=== PATIENT | female | born 1960 | race Caucasian/White ===

== ENCOUNTER 2024-03-11 15:37 | Emergency (ER) | payer OTHER, SELFPAY ==
[2024-03-11 15:40] VITALS: BP 133/70
--- NOTE | 2024-03-11 16:33 | ED.GENMED ---
History of Present Illness
General
Chief Complaint: Eye Problems
Source: patient
Exam Limitations: none
Time Seen by Provider: 03/11/24 15:56
Nursing documentation reviewed up to this point in time: agreed with
History of Present Illness
History of Present Illness:
64-year-old female presenting to the emergency department today with concerns of swelling to the right eye worsening throughout the day today. Moderately painful mildly itchy no visual changes no trauma or additional concerns otherwise
Past History
Past History
ED Past Medical History: None
ED Past Surgical History: None
Social History
Tobacco: Non-smoker
Alcohol: None
Drug: None
Personal: Single
Living: with family
Review of Systems
Review of Systems
Allergies reviewed?: Yes
All Other Systems: ROS reviewed and negative except as documented in HPI and ROS
Phy Exam
Physical Exam
Physical Exam:
GENERAL: Alert , in no apparent distress
EYE: Swelling to the right upper eyelid with extension and some mild redness to the surrounding tissue. Maximal to the 11:00 portion of the eyelid. Mildly tender otherwise normal-appearing eye, normal pupil reaction and extraocular movements
pupils equal and reactive
NECK: Supple, no significant adenopathy.
ENT: o/p clr, mmm.
CARDIAC: Regular rate and rhythm .
LUNGS: Clear breath sounds bilaterally, no acute respiratory distress, no wheezes/rales/rhonchi
ABDOMEN: Soft, without focal tenderness, no r/g, no cvat
NEUROLOGICAL: Alert and oriented, no focal neuro deficits
SKIN: Warm and dry, skin intact.
MUSCULOSKELETAL: No edema, well perfused.
PSYCH: Normal and appropriate interaction.
Course
Orders/Labs/Results
Orders:
Orders
03/11/24 15:52
Fluorescein Sodium [Ful-Yasmine] 2 mg .ROUTE .STK-MED ONE
Tetracaine HCl [Tetracaine 0.5% Ophthalmic Solution] 1 drop .ROUTE .STK-MED ONE
03/11/24 16:29
Amoxicillin 875 mg/Clav 125 mg [Augmentin 875 mg/125 mg] 1 tablet PO NOW STA
Vital Signs
Initial and Last Documented VS:
Initial Vital Signs
Temp Pulse Resp BP Pulse Ox
97.4 F 55 16 133/70 98
03/11/24 15:40 03/11/24 15:40 03/11/24 15:40 03/11/24 15:40 03/11/24 15:40
Last Documented Vital Signs
Temp Pulse Resp BP Pulse Ox
97.4 F 55 16 133/70 98
03/11/24 15:40 03/11/24 15:40 03/11/24 15:40 03/11/24 15:40 03/11/24 15:40
MDM/Problems Addressed
MDM/Problems Addressed:
64-year-old female presenting to the emergency department today with concerns of right eyelid swelling worsening throughout the morning. No fevers no systemic symptoms. Swelling is mainly to the eyelid itself likely consistent with hordeolum or
blepharitis. She was advised for warm compresses and erythromycin ointment. No involvement of the eye itself with good vision normal extraocular movements and normal pupil reaction. No signs of foreign body with fluorescein exam. There was some
slight extending redness to the surrounding area raising some degree of concern for early preseptal cellulitis though blepharitis seems more likely. This was discussed with the patient who opted to start antibiotics orally as well. She was advised
for ophthalmology follow-up return precautions given.
*Critical Care Note
Total Time (30-74mins, 75-104mins- exclusive of procedures): Not Applicable
ED Attending Note
-
Portions of this chart may have been created with voice recognition software.� Occasional wrong word or��sound alike� substitutions may have occurred due to the inherent limitations of voice recognition software.
Discharge Plan
Departure
Patient Disposition: Home (Routine Discharge)
Date of Disposition: 03/11/24
Time of Disposition: 16:33
Patient with high blood pressure during this ER visit?: No
Condition: Good
Covid-19: Not Applicable
Discharge Problem:
Blepharitis
Instructions: Blepharitis
Prescriptions:
New
amoxicillin-pot clavulanate 875-125 mg tablet
1 tab PO BID 5 Days Qty: 10 0RF
erythromycin 5 mg/gram (0.5 %) ointment
1 applic ophthalmic (eye) BID Qty: 3.5 0RF
No Action
moxifloxacin [Vigamox] 0.5 % drops
1 drp OPHTHALMIC TID Qty: 1 0RF
Rx Instructions:
1 drop three times a day to the right eye
prednisone 10 mg Tablet
10 mg PO DIRECTED Qty: 21 0RF
Rx Instructions:
Take 6 tabs on day 1, 5 tabs on day 2, 4 tabs on day 3, 3 tabs on day 4, 2 tabs on day 5, 1 tab on day 6
pseudoephedrine HCl [Sudafed] 30 mg tablet
30 mg PO ONCE PRN (Reason: nasal congestion) Qty: 10 0RF
azithromycin [Zithromax] 250 mg tablet
250 mg PO DAILY Qty: 6 0RF
Rx Instructions:
take 2 tabs on day 1 and then 1 tab for remaining
Referrals:
Vasquez Cornelius MD [Active] - Follow up in 2-3 days
UNKNOWN - PT DOES,NOT KNOW [Family Provider] -
Activity Restrictions/Additional Instructions:
You came to the emergency department today with concerns of eyelid swelling. This is likely blepharitis or hordeolum. Please use the erythromycin to the affected area as well as warm compresses multiple times per day to the area. Please also take
the antibiotics to reduce risk of progression. Return to the emergency department any worsening, new or concerning symptoms. Otherwise please follow closely with an eye doctor.
Interventions
Interventions:
*Risk Screen - Suicide Last Done: 03/11/24 15:40
*General Assessment Last Done: 03/11/24 15:40
*Neglect/Abuse Screening Last Done: 03/11/24 15:40
ED- Fall Risk Assessment Last Done: 03/11/24 16:14
*ED COVID-19 Vaccine History Last Done: 03/11/24 16:13
Discharge Date and Time
Print Language: [place]
[2024-03-11] MEDS: AUGMENTIN 875 MG/125 MG 1 TABLET PO (16:36)
[2024-03-11 16:38] VITALS: BMI 19.2
== END 2024-03-11 16:47 | disposition home or self-care (01) ==
LOC: EMR 15:37
PROVIDERS: EMERGENCY PHYSICIAN Emergency Medicine
DX: H01.001 Unspecified blepharitis right upper eyelid (principal); Z88.8 Allergy status to other drugs, medicaments and biological substances
CPT/HCPCS: 99283

== ENCOUNTER 2025-06-15 17:42 | Emergency (ER) | payer OTHER, SELFPAY ==
[2025-06-15 17:52] VITALS: BP 158/88
[2025-06-15 18:15] LABS: Hematocrit 38.6 % (37.0-47.0); Hemoglobin 13.5 g/dL (12.0-16.0); Mean Corp Hgb Conc. 35.0 g/dL (33.0-37.0); Mean Corpuscular Volume 90.8 fL (81.0-99.0); Nucleated Red Blood Cells % 0 %; Platelet Count 240 10^3/uL (130-400); Red Cell Dist. Width 12.4 % (11.5-14.5)
[2025-06-15 18:29] LABS: COVID-19 Antigen Negative (Negative)
[2025-06-15 18:33] LABS: ALT (SGPT) 23 U/L (0-35); AST (SGOT) 38 U/L (14-36); Albumin 4.3 g/dl (3.5-5.0); Alkaline Phosphatase 95 U/L (38-126); Blood Urea Nitrogen 15 mg/dl (7-17); Calcium 9.4 mg/dl (8.4-10.2); Carbon Dioxide 29 mmol/L (22-30); Chloride 97 mmol/L (98-107); Glucose 96 mg/dl (70-99); Potassium 3.9 mmol/L (3.5-5.1); Sodium 134 mmol/L (135-145); Total Protein 7.5 g/dl (6.3-8.2); eGFR > 60.00
[2025-06-15 20:50] VITALS: BMI 21.9
--- NOTE | 2025-06-15 21:44 | ED.GENMED ---
History of Present Illness
General
Chief Complaint: Cold/Flu/URI Symptoms
Source: patient
Exam Limitations: none
Time Seen by Provider: 06/15/25 20:56
Nursing documentation reviewed up to this point in time: agreed with
History of Present Illness
History of Present Illness:
Patient to the emergency department with complaint of sinus pain and pressure, increasing nasal discharge, increasing postnasal drip. Symptoms started approximately 4 weeks ago. She states that she has been in contact with her PCP. States PCP
declined treatment with antibiotics stating symptoms will resolve on own. Patient denies any fever or chills. She states her symptoms are actually worsening. Brought self to the emergency department for evaluation.
Past History
Past History
ED Past Medical History: None
ED Past Surgical History: None
Social History
Tobacco: Non-smoker
Alcohol: None
Drug: None
Personal: Single
Living: with family
Review of Systems
Review of Systems
Allergies reviewed?: Yes
All Other Systems: ROS reviewed and negative except as documented in HPI and ROS
Constitutional: Reports no symptoms
EENT: Reports other (Sinus pain and pressure, increasing nasal discharge, increasing postnasal drip.)
Respiratory: Reports no symptoms
Cardiac: Reports no symptoms
ABD/GI: Reports no symptoms
: Reports no symptoms
Musculoskeletal: Reports no symptoms
Skin: Reports no symptoms
Neurological: Reports no symptoms
Psychiatric: Reports no symptoms
Phy Exam
General Physical Exam
General Presentation: mild distress
General age: appears stated age
General Skin: warm and dry
General Habitus: normal
ENT Exam
ENT Exam: EOMI, TM's normal, pharynx normal, neck supple, swallowing well and other (Clear nasal discharge present. Erythema to nasal mucosa swelling to turbinates. Thick yellow postnasal drip present. No facial swelling. No sinus tendernes.)
Eye Exam
Eye Exam: PERRL, EOMI, conjunctiva normal and globe normal
Cardiovascular Exam
Cardiovascular Exam: regular rate/rhythm and no edema
Pulmonary Exam
Pulmonary Exam: lungs clear and no respiratory distress
Musculoskeletal Exam
Musculoskeletal Exam: full ROM and neuro vasc intact
Skin Exam
Skin Exam: normal color, warm/dry and no rash
Psychiatric Exam
Psychiatric Exam: normal mood/affect
Course
Orders/Labs/Results
Orders:
Orders
06/15/25 18:04
COVID-19 Antigen Urgent
Source: Nasal Swab
Complete Blood Count/With Diff Urgent
Comprehensive Metabolic Panel Urgent
Influenza A+B Rapid Molecular Urgent
YESSICA Source: Nasal Swab
Specimen Description:
06/15/25 21:40
Amoxicillin 875 mg/Clav 125 mg [Augmentin 875 mg/125 mg] 1 tablet PO NOW STA
Abnormal Lab Results
06/15/25
18:04
MCH 31.8 H pg
(27.0-31.0)
Absolute Monos (auto) 0.9 H 10^3/uL
(0.1-0.6)
Lymphocytes % 17.4 L %
(20.5-51.1)
Monocytes % 10.7 H %
(1.7-9.3)
Sodium 134 L mmol/L
(135-145)
Chloride 97 L mmol/L
(98-107)
AST 38 H U/L
(14-36)
06/15/25 18:04
06/15/25 18:04
Vital Signs
Initial and Last Documented VS:
Initial Vital Signs
Temp Pulse Resp BP Pulse Ox
98.1 F 79 20 158/88 98
06/15/25 17:52 06/15/25 17:52 06/15/25 17:52 06/15/25 17:52 06/15/25 17:52
Last Documented Vital Signs
Temp Pulse Resp BP Pulse Ox
98.1 F 79 20 158/88 98
06/15/25 17:52 06/15/25 17:52 06/15/25 17:52 06/15/25 17:52 06/15/25 21:44
*Pulse Oximetry
SaO2: 98
Oxygen Mode of Delivery: Room air
Patient hypoxic: no
*Critical Care Note
Total Time (30-74mins, 75-104mins- exclusive of procedures): Not Applicable
Update Note
Update Note:
Patient to the emergency department for evaluation of sinus symptoms for the past 4 weeks. She reports increasing nasal congestion, increasing nasal discharge, increase in postnasal drip. She states that she had requested an antibiotic by her PCP
but was told that her symptoms were resolved without antibiotic treatment. Patient states her symptoms continue to worsen. In light of the fact that the symptoms have been ongoing for the past 4 weeks, findings on exam, will treat with Augmentin
875 twice daily. Advised use of a nasal steroid such as Nasacort but patient has declined this medication. She will be discharged home. She was given instructions on signs and symptoms to return to the emergency department, and she is agreeable
to this plan.
ED Attending Note
-
Portions of this chart may have been created with voice recognition software.� Occasional wrong word or��sound alike� substitutions may have occurred due to the inherent limitations of voice recognition software.
Discharge Plan
Departure
Patient Disposition: Home (Routine Discharge)
Date of Disposition: 06/15/25
Time of Disposition: 21:41
Patient with high blood pressure during this ER visit?: No
Condition: Good
Covid-19: Not Applicable
Discharge Problem:
Acute sinusitis
Instructions: Sinusitis in adults - ED (DC)
Prescriptions:
New
amoxicillin-pot clavulanate 875-125 mg tablet
1 tab PO BID Qty: 20 0RF
No Action
moxifloxacin [Vigamox] 0.5 % drops
1 drp OPHTHALMIC TID Qty: 1 0RF
Rx Instructions:
1 drop three times a day to the right eye
prednisone 10 mg Tablet
10 mg PO DIRECTED Qty: 21 0RF
Rx Instructions:
Take 6 tabs on day 1, 5 tabs on day 2, 4 tabs on day 3, 3 tabs on day 4, 2 tabs on day 5, 1 tab on day 6
pseudoephedrine HCl [Sudafed] 30 mg tablet
30 mg PO ONCE PRN (Reason: nasal congestion) Qty: 10 0RF
azithromycin [Zithromax] 250 mg tablet
250 mg PO DAILY Qty: 6 0RF
Rx Instructions:
take 2 tabs on day 1 and then 1 tab for remaining
amoxicillin-pot clavulanate 875-125 mg tablet
1 tab PO BID 5 Days Qty: 10 0RF
erythromycin 5 mg/gram (0.5 %) ointment
1 applic ophthalmic (eye) BID Qty: 3.5 0RF
Activity Restrictions/Additional Instructions:
Follow-up with your family doctor.
Interventions
Interventions:
*General Assessment Last Done: 06/15/25 17:52
*Neglect/Abuse Screening Last Done: 06/15/25 17:52
*ED COVID-19 Vaccine History Last Done: 06/15/25 20:50
*ED Influenza Vaccine History Last Done: 06/15/25 20:50
[facility] Fall Risk Assessment Tool Last Done: 06/15/25 20:50
*Risk Screen - Suicide (C-SSRS) Last Done: 06/15/25 20:50
*Nursing Disposition Last Done: 06/15/25 21:55
ED- Pulmonary Assessment Last Done: 06/15/25 20:50
Discharge Date and Time
Discharge Date/Time: 06/15/25 21:56
Print Language: CITIZEN [place]
[2025-06-15] MEDS: AUGMENTIN 875 MG/125 MG 1 TABLET PO (21:47)
== END 2025-06-15 21:56 | disposition home or self-care (01) ==
LOC: EMR 17:42
PROVIDERS: Student in an Organized Health Care Education/Training Program; EMERGENCY PHYSICIAN Emergency Medicine
DX: J01.90 Acute sinusitis, unspecified (principal)
CPT/HCPCS: 99283; 80053; 85025; 87502; 87811